=== PATIENT | female | born 1990 | race Caucasian/White ===

== ENCOUNTER 2023-07-22 09:04 | Emergency (ER) | payer OTHER ==
[2023-07-22] MEDS: Ketorolac 30 MG/ML SDV IVPUSH ONE (09:33)
[2023-07-22] MEDS: Ondansetron 4 MG/2 ML SDV IVPUSH ONE (09:33)
[2023-07-22 09:42] LABS: BASOPHILS ABSOLUTE AUTO 0.09 K/uL (0.00-0.20); BASOPHILS PERCENT AUTO 0.9 % (0.0-1.0); EOSINOPHILS ABSOLUTE AUTO 0.37 K/uL (0.00-0.45); EOSINOPHILS PERCENT AUTO 3.8 % (0.0-6.0); HEMATOCRIT 38.8 % (37.0-47.0); IMMATURE GRAN ABSOLUTE AUTO 0.03 K/uL (0.00-0.05); IMMATURE GRAN PERCENT AUTO 0.3 % (0.0-0.4); LYMPHOCYTES ABSOLUTE AUTO 2.06 K/uL (1.00-4.80); LYMPHOCYTES PERCENT AUTO 21.4 % (24.0-44.0); MEAN CORPUSCULAR HGB CONC 33.5 g/dL (32.0-36.0); MEAN CORPUSCULAR VOLUME 89.4 fL (83.0-99.0); MEAN PLATELET VOLUME 9.7 fL (9.4-12.3); MONOCYTES ABSOLUTE AUTO 0.65 K/uL (0.00-0.80); MONOCYTES PERCENT AUTO 6.7 % (0.0-8.0); NEUTROPHILS ABSOLUTE AUTO 6.44 K/uL (1.80-7.70); NEUTROPHILS PERCENT AUTO 66.9 % (41.0-71.0); PLATELET COUNT,PLT 298 K/uL (150-400); RED BLOOD CELL COUNT 4.34 M/uL (4.10-5.30); WHITE BLOOD CELL COUNT,WBC 9.64 K/uL (3.9-11.3)
[2023-07-22 10:01] LABS: A/G RATIO 1.1 (0.9-1.6); ALBUMIN 3.7 g/dL (3.4-5.0); BILIRUBIN TOTAL 0.6 mg/dL (0.2-1.0); CALCIUM 8.9 mg/dL (8.5-10.1); CARBON DIOXIDE,CO2 24.3 mmol/L (21.0-32.0); CREATININE 0.9 mg/dL (0.6-1.0); EST CRCL DRUG DOSING (CG) 78.21 mL/min; POTASSIUM,K 3.9 mmol/L (3.5-5.1); PROTEIN TOTAL,TP 7.1 g/dL (6.4-8.2)
[2023-07-22] MEDS: Iopamidol 755 MG/ML 500 ML Multipack Bottle IVPUSH STA (10:25)
== END 2023-07-22 11:30 | disposition home or self-care (01) ==
LOC: MW.ED 09:04
DX: R10.31 Right lower quadrant pain (principal); Z88.0 Allergy status to penicillin; Z79.899 Other long term (current) drug therapy
CPT/HCPCS: 36415; 74177; 80053; 81025; 85025; 96374; 96375; 99284; J1885; J2405; Q9967